=== PATIENT | male | born 2000 | race Hispanic/Latino ===

== ENCOUNTER 2022-06-29 22:10 | Emergency (ER) | payer SELFPAY ==
[~2022-06-29] VITALS: Ht 160 cm; Wt 55.0 kg
[2022-06-29] VITALS (7 sets, daily range): BP systolic 111–140; BP diastolic 70–89
[2022-06-29] MEDS ORDERED: VOLTAREN - GENE75 MG PO (23:28)
== END 2022-06-29 23:50 | disposition home or self-care (01) | DRG 605 ==
LOC: ED 22:10
DX: S70.02XA Contusion of left hip, initial encounter (principal); S80.12XA Contusion of left lower leg, initial encounter; S70.212A Abrasion, left hip, initial encounter; S80.812A Abrasion, left lower leg, initial encounter; V13.4XXA Pedal cycle driver injured in collision with car, pick-up truck or van in traffic accident, initial encounter